=== PATIENT | female | born 1985 | race Caucasian/White ===

== ENCOUNTER 2024-05-21 11:26 | Outpatient (CLI) | payer OTHER, SELFPAY ==
[2024-05-21 11:58] LABS: Hematocrit 39.4 % (37.0-47.0); Mean Corpuscular Hemoglobin 30.2 pg (26-34); Mean Corpuscular Volume 91.4 fl (80-100); Mean Platelet Volume 8.8 fl (7.4-10.4); Platelet Count Result 335 k/mm3 (150-375); Red Blood Count 4.31 M/mm3 (4.2-5.4); White Blood Count 7.8 K/mm3 (4.5-10.0)
[2024-05-21 12:14] LABS: Albumin Level 4.3 g/dL (3.5-5.1); Anion Gap 9 mmol/L (4-12); Blood Urea Nitrogen 10 mg/dL (7-17); Carbon Dioxide 25 mmol/L (22-30); Chloride 106 mmol/L (98-107); Estimated Glomerular Filt Rate > 60; Glucose 88 mg/dL (65-110); Potassium 3.7 mmol/L (3.4-5.0); Sodium 140 mmol/L (137-145)
[2024-05-21 12:21] LABS: Prealbumin 24.3 mg/dL (17.6-36.0)
[2024-05-21 12:22] LABS: Iron 50 ug/dL (37-170)
[2024-05-26 16:24] LABS: Vitamin B1 17 nmol/L (8-30)
== END 2024-05-21 11:27 | disposition home or self-care (01) ==
PROVIDERS: Visit Provider Surgery Plastic and Reconstructive Surgery
DX: R63.4 Abnormal weight loss (principal)
CPT/HCPCS: 36415; 80048; 82040; 83540; 84134; 84425; 85027

== ENCOUNTER 2024-06-09 09:26 | Outpatient (CLI) | payer OTHER, SELFPAY ==
--- NOTE | 2024-06-09 09:33 | ECG_ITS ---
Test Date: 2024-06-09 09:50:22 Measurements Intervals [place] Rate: 70 P: 30 FL: 176 QRS: 7 QRSD: 102 T: 29 QT: 402 QTc: 435 Interpretive Statements SINUS RHYTHM No previous ECG available for comparison Electronically Signed On 06-09-2024 15:29:07 SALVAGE CLERK by Berenice Green M.D.
== END 2024-06-09 09:27 | disposition home or self-care (01) ==
LOC: ANHSURGERY 09:30
PROVIDERS: Visit Provider Surgery Plastic and Reconstructive Surgery
DX: Z41.1 Encounter for cosmetic surgery (principal)
CPT/HCPCS: 93005

== ENCOUNTER → 2024-06-16 00:35 | Day surgery (SDC) | payer OTHER, SELFPAY ==
[2024-06-03 14:11] VITALS: BMI 33.5
--- NOTE | 2024-06-03 14:12 | PC.NURSE ---
Report to the Outpatient Waiting Room, entrance under the green pavilion located off [facility], at time _0600_ on date _[id number]_. Planned Procedure Time: _0730_.? Time changes happen often and if your time is changed the preop area will call you the afternoon before. - You and your visitor will be asked to self-screen and do not enter if you have any COVID symptoms. Please call surgeon if you need to reschedule. - A mask is optional within the hospital at this time. Patients may have clear liquids (water, carbonated beverages, clear teas, apple juice) until 3 hours prior to surgery with a maximum of 20 ounces. - No food from midnight until time of surgery and no smoking. This includes no chewing gum, candy or mints. Take only the following medications with a SIP of water on the morning of surgery: __Escitalopram DO NOT STOP ANY OF YOUR OTHER PRESCRIPTION MEDICATIONS PRIOR TO SURGERY EXCEPT THE FOLLOWING Medications to discontinue per physician ___All vitamins and supplements Date to take last bpcy____[id number]__ Please no make-up, nail romansh, hairspray, perfume, deodorant, or body powder the day of surgery.? No jewelry (including any body piercings) or valuables the day of surgery, leave them at home.? Please take a shower or bath the night before, or the morning of, surgery with an antibacterial soap.? Wear comfortable, loose fitting clothing.? - Jewelry must be removed prior to entering the operating room.? Rings and piercings that are not removed may be cut off. - The hospital will not accept responsibility for valuables.? - Please leave all valuables, including medications, at home the day of surgery. If you are going home after surgery, a licensed catering truck driver must drive you home.? - NO public transportation without another adult if you receive anesthesia. - We recommend that an adult stay with you for 24 hours following discharge. - We also recommend that you do not drive, make important decision, drink alcoholic beverages, or take any drugs that were not prescribed by your health care provider for at least 24 hours after your discharge time. Follow any additional instructions given to you from your surgeon. Telephone instructions given to _Ruma_and asked if any additional questions and then verbalized understanding. Patient advised to call surgeon office or pre surgery nurse liaison [phone] if any additional questions.
[2024-06-16] VITALS (15 sets, daily range): BP systolic 103–118; BP diastolic 44–74; PULSE 70–100; RESP 14–20; TEMP 36.4–36.5; O2SAT 92–100
[2024-06-16] MEDS: LACTATED RINGERS 1,000 ML 30 ML IV CONT ×2 (06:45→13:51)
--- NOTE | 2024-06-16 07:00 | WPDHPUPDATE1 ---
History and Physical Update Update Date/Time: 06/16/24 07:00 History and Physical has been reviewed, including an updated exam of the patient. There are NO changes in the patient's condition. Risks, benefits, and alternatives have been discussed and questions answered. Patient agrees to proceed with procedure.
--- NOTE | 2024-06-16 07:15 | P.OP_ITS ---
Procedure Note - Detailed Date of Procedure 06/16/24 Pre-op Diagnosis Skin Laxity Post-op Diagnosis Same Procedure Performed Belt lipectomy with suction lipectomy Surgeon Ari Cortez MD Anesthesia General Findings Tissue removed: 4,841 grams Lipoaspirate: 4,000 cc Description of Procedure They are here today for the above procedures. Previously and again today the risks, benefits, alternatives were discussed in extensive detail. I wanted them to be very realistic about the risks involved as well as expectations. We discussed aftercare and what to monitor for. I was very upfront about the risks of wound breakdown leading to loss of skin, open wounds, and need for additional procedures with permanent abdominal deformity. We discussed DVT/PE risks and management. Made sure answered all of their questions to their satisfaction today and consent was obtained. They were marked in the preoperative holding area with their verification. The patient was taken to the operating room. Anesthesia was provided by anesthesiology. A Dixon catheter was started. Posterior Placed prone on the operating room table with care taken to protect from injury. Prepped and draped in a standard sterile fashion. A surgical time-out was taken. Stab incisions were made and tumescent solution was infiltrated. Once adequate time was allowed for hemostasis a 5mm basket and 4mm ligia cannula were utilized to complete suction lipectomy based on S.A.F.E. technique in multiple planes and passes. Suction lipectomy continued to result based on pre-operative planning, intra-operative observation, and rolling pinch test which were in full agreement. A 10 blade was used to make the upper incision and dissection was continued inferior elevating what we necessary for closure. I placed patient in slight jackknife position and excised intervening tissue. This was closed with 3 point suture with 2-0 Vicryl followed 2-0 PDO strattafix, 3-0 stratafix ,running subcuticular 4-0 Monocryl, and tissue glue. Laterally harvey were placed for turning. Anterior Patient was then placed supine with care taken to protect from injury. I placed the patient in a flexed position to verify the upper and lower markings would reach. I then placed supine. A thorough abdominal examination was completed. Stab incisions were made and tumescent solution infiltrated. Stab incisions were made and tumescent solution was infiltrated. Once adequate time was allowed for hemostasis a 5mm basket and 4mm ligia cannula were utilized to complete suction lipectomy based on S.A.F.E. technique in multiple planes and passes. Suction lipectomy continued to result based on pre-operative planning, intra-operative observation, and rolling pinch test which were in full agreement. A 10 blade was used to make the upper incision. I continued dissection down to the level of fascia. Elevated just what was necessary for repair of the diastasis. I then again flexed the bed to verify the upper skin flap would re ach the lower markings without tension. Once verified I placed her supine once again and a 10 blade used to make the lower incision. I elevated up to level the umbilicus and left the umbilicus intact on a well-vascularized stalk. The intervening tissue was removed. A 2 mm blunt cannula with 0.5% bupivacaine was injected deep to the fascia bilaterally. I plicated the diastasis recti using 0 PDO Stratafix barbed suture. This was in 2 separate layers using 2 separate sutures as well. After the patient was flexed (below) plicated the fascia with 0 PDO Stratafix in two separate layers. The patient was flexed and starting from superior to inferior began plication using 2-0 Vicryl to obliterate all space in a standard progressive tension fashion. At the umbilicus I marked out the location of the skin and inset this with 3-0 Monocryl and 4-0 Vicryl. I continued the remainder of the plication using 2-0 Vicryl until I reached my lower planned scar line. I trimmed any excess skin of the upper flap making sure this was a tension-free closure. 15 Feliciano drain was placed. I then approximated using a 3 point suture with 2-0 Vicryl followed by 2-0 PDO Stratafix, 3-0 Stratafix ,running subcuticular 4-0 Monocryl, and tissue glue. Fluffs and an abdominal binder were placed. The patient was transferred to the bed in a flexed position. Awoken and taken to the PACU without difficulty. All instrument and sponge counts were correct at the end of the case. Estimated Blood Loss 125 Drains Yes (15 Feliciano) Packing No Pathology None sent Complications No immediate complications Condition Stable Disposition PACU
--- NOTE | 2024-06-16 07:21 | P.PNAN_ITS ---
Anes - Initial Pre Proc Eval Procedure: Operation Date: 06/16/24 07:30 Proposed Procedures p Belt Lipectomy with Liposuction - Ari Cortez MD Date/Time: 06/16/24 07:21 Surgeon: Ari Cortez MD Pre Op Diagnosis: Skin Laxity Patient Data Age: 39 Gender: F Height: 1.8 m Weight: 109 kg Allergies Allergy/AdvReac Type Severity Reaction Status Date / Time bupropion Allergy Severe Anaphylactic Verified 06/03/24 13:50 Shock Penicillins Allergy Severe Anaphylactic Verified 06/03/24 13:50 Shock hydrocodone AdvReac Mild Itching Verified 06/03/24 13:50 Home Medications ?Medication ?Instructions ?Recorded ?Confirmed ?Type calcium 600 mg capsule 1,200 mg PO DAILY 06/03/24 06/03/24 History cetirizine 10 mg tablet (Zyrtec) 10 mg PO BID 06/03/24 06/03/24 History cholecalciferol (vitamin D3) 125 250 mcg PO DAILY 06/03/24 06/03/24 History mcg (5,000 unit) tablet (Vitamin D3) dupilumab 300 mg/2 mL subcutaneous 300 mg subcut WEEKLY 06/03/24 06/03/24 History pen injector (Dupixent) escitalopram oxalate 20 mg tablet 20 mg PO DAILY 06/03/24 06/03/24 History esomeprazole magnesium 20 mg 20 mg PO BID 06/03/24 06/03/24 History capsule,delayed release (Nexium) famotidine 10 mg tablet (Pepcid AC) 10 mg PO BID 06/03/24 06/03/24 History gabapentin 300 mg capsule 600 mg PO HS 06/03/24 06/03/24 History hydrocortisone 0.25 % topical cream 1 applic topical BID PRN Rash 06/03/24 06/03/24 History magnesium glycinate 100 mg (as 400 mg PO DAILY 06/03/24 06/03/24 History glycinate) tablet montelukast 10 mg tablet 10 mg PO HS 06/03/24 06/03/24 History multivitamin 1 tablet PO DAILY 06/03/24 06/03/24 History progesterone micronized 100 mg 100 mg PO HS 06/03/24 06/03/24 History capsule tirzepatide (weight loss) 10 10 mg subcut WEEKLY 06/03/24 06/03/24 History mg/0.5 mL subcutaneous pen injector (Zepbound) Laboratory Tests 06/16/24 07:11 Cotinine Pending Patient hx anesthesia problems: none Family hx anesthesia problems: none Results Review: All pre-operative results and documents have been reviewed as part of the pre- operative evaluation. [facility] Social History Social History Smoking status: Never smoker Alcohol intake: current Substance use type: marijuana Other substance usage details: occasional gummy for sleep Living arrangements: with family Spiritual care concerns: No Anes - Eval Final PreProcedure Day of Procedure 06/16/24 07:21 Patient weight: obese Heart: regular rate and rhythm Lungs: clear to auscultation Airway: Mallampati scale class II Neurological: alert and oriented Last oral intake: >/= 8 hours ASA classification: III Emergent: no Anesthetic plan: proceed Anesthesia type and monitoring: general ETT and standard monitoring Results Review: All pre-operative results and documents have been reviewed as part of the pre- operative evaluation. Informed Consent: The patient's anesthetic plan and its attendant risks and benefits were discussed with the patient/family/POA. Questions were solicited and answers provided to the satisfaction of the patient/family/POA.
--- NOTE | 2024-06-16 07:24 | P.PNAN_ITS ---
Anes - Eval Final PreProcedure Day of Procedure 06/16/24 07:24 Patient weight: obese Heart: regular rate and rhythm Lungs: clear to auscultation Airway: Mallampati scale class II Neurological: alert and oriented Last oral intake: >/= 8 hours ASA classification: II Emergent: no Anesthetic plan: proceed Anesthesia type and monitoring: general ETT and standard monitoring Results Review: All pre-operative results and documents have been reviewed as part of the pre- operative evaluation. Informed Consent: The patient's anesthetic plan and its attendant risks and benefits were discussed with the patient/family/POA. Questions were solicited and answers provided to the satisfaction of the patient/family/POA.
[2024-06-16] MEDS: SCOPOLAMINE 1 MG PATCH 1 PATCH TRANSDERM (07:25)
[2024-06-16] MEDS: ceFAZolin 2 GM/D5W 50 ML 2 GM/50 ML BAG IVPB (07:34)
[2024-06-16 07:46] LABS: Urine Cotinine NEGATIVE
[2024-06-16] MEDS: BUPIVACAINE/EPINEPHRINE 0.5% 50 ML VIAL INFILTRATE (08:38)
[2024-06-16] MEDS: LACTATED RINGERS IRRIG 1,000 ML, LIDOCAINE HCL 1% LOCAL INJ 50 ML, EPINEPHrine HCL INJ ... INFILTRATE (09:21)
[2024-06-16 09:37] LABS: BEDSIDEPREGUCG Negative (Negative)
[2024-06-16] MEDS: oxyCODONE HCL (*CRX) 5 MG TAB IR PO (16:39)
== END | disposition home or self-care (01) ==
PROVIDERS: Visit Provider Surgery Plastic and Reconstructive Surgery
PROC: (CPT 15830; principal; 2024-06-16 07:30)
DX: Z41.1 Encounter for cosmetic surgery (principal); L57.4 Cutis laxa senilis; F12.90 Cannabis use, unspecified, uncomplicated; E66.9 Obesity, unspecified; Z68.35 Body mass index [BMI] 35.0-35.9, adult; Z79.85 Long-term (current) use of injectable non-insulin antidiabetic drugs; Z98.890 Other specified postprocedural states; Z98.1 Arthrodesis status
CPT/HCPCS: 15830; 15847; 15877; 80307; A9270; J0171; J0330; J0690; J1171; J1940; J2003; J2250; J2310; J2371; J2405; J2704; J7030; J7120